=== PATIENT | female | born 1975 | race Caucasian/White ===

== ENCOUNTER → 2018-08-10 | Outpatient (CLI) | payer BC ==
[~2018-08-10] MED LIST: LEVO75TA PO; VALS160T3 PO
== END | disposition home or self-care (01) ==
LOC: CFH 12:59
PROVIDERS: ATTEND Nurse Practitioner Family
DX: N64.9 Disorder of breast, unspecified (principal); R92.2 Inconclusive mammogram; N64.4 Mastodynia
CPT/HCPCS: 76642; 77066